=== PATIENT | female | born 1935 | race Caucasian/White ===

== ENCOUNTER 2019-12-10 11:12 | Observation (INO) ==
[2019-12-10] MEDS ORDERED: NS 0.9% 1000 ml BAG 1,000 ML IV ONE (12:06)
[2019-12-10 13:17] LABS: ABS Eosinophils 0.2 10^3/ul (0-0.6); ABS Lymphocytes 2.6 10^3/ul (1.0-4.8); ABS Neutrophils 6.7 10^3/ul (1.5-7.7); Eosinophil % 2.1 %; Hematocrit 38 % (35-47); Hemoglobin 12.9 g/dL (12.0-16.0); Lymphocyte % 24.2 %; Mean Corpuscular HGB Conc 34 g/dL (31-36); Mean Corpuscular Hemoglobin 28 pg (27-31); Mean Corpuscular Volume 85 fL (80-97); Mean Platelet Volume 7.9 fL (7.4-10.4); Platelet Count 258 10^3/uL (150-450); Red Blood Count 4.54 10^6 /uL (3.70-4.87); Red Cell Distribution Width 15 % (10-15); White Blood Count 10.5 10^3/uL (3.5-10.8)
[2019-12-10 13:37] LABS: ALT 12 U/L (7-52); AST 13 U/L (13-39); Albumin/Globulin Ratio 1.1 (1-3); Alkaline Phosphatase 68 U/L (34-104); Anion Gap 9 mmol/L (2-11); BUN/Creatinine Ratio 21.1 (8-20); Blood Urea Nitrogen 15 mg/dL (6-24); CO2 Carbon Dioxide 21 mmol/L (22-32); Calcium 9.7 mg/dL (8.6-10.3); Chloride 108 mmol/L (101-111); EGFR African American 95.1 (>60); EGFR Non-African American 78.6 (>60); Globulin 3.7 g/dL (2-4); Glucose 116 mg/dL (70-100); Magnesium 2.1 mg/dL (1.9-2.7); Potassium 3.7 mmol/L (3.5-5.0); Sodium 138 mmol/L (135-145); Total Protein 7.7 g/dL (6.4-8.9)
[2019-12-10 13:40] LABS: Troponin I 0.05 ng/mL (<0.03)
[2019-12-10 13:58] LABS: TSH Ultra Thyroid Stim Horm 1.87 mcIU/mL (0.34-5.60)
[2019-12-10 14:47] LABS: Urine Appearance Clear; Urine Bilirubin Negative (Negative); Urine Blood Negative (Negative); Urine Color Straw; Urine Glucose Negative (Negative); Urine Ketones Negative (Negative); Urine Nitrite Negative (Negative); Urine Protein Negative (Negative); Urine Specific Gravity 1.004 (1.010-1.030); Urine Urobilinogen Negative (Negative)
[2019-12-10 14:54] LABS: Urine Bacteria Absent (Absent); Urine Red Blood Cell Trace(0-2/hpf) (Absent); Urine Squamous Epithelial Cell Present (Absent); Urine White Blood Cell Trace(0-5/hpf) (Absent)
[2019-12-10] MEDS ORDERED: ROSUVASTATIN 5 MG PO SCH (16:00)
[2019-12-10] MEDS: NS 0.9% 1000 ml BAG 1,000 ML IV SCH (17:46)
[2019-12-10 18:11] LABS: Troponin I 0.05 ng/mL (<0.03)
[2019-12-10] MEDS ORDERED: Enoxaparin 40 MG/0.4 ML SYR SUBCUT SCH (21:00)
[2019-12-11] MEDS: NS 0.9% 1000 ml BAG 1,000 ML IV SCH (02:28)
[2019-12-11 12:23] VITALS: BP 160/59
== END 2019-12-11 13:02 | disposition home or self-care (01) ==
LOC: ED 11:12 → MEDTELE 11:12
PROVIDERS: ADMIT Hospitalist; ATTEND Internal Medicine